=== PATIENT | male | born 1990 | race Caucasian/White ===

== ENCOUNTER 2017-02-04 15:51 | Emergency (ER) | payer OTHER ==
[~2017-02-04] VITALS: Ht 185.4 cm; Wt 142.9 kg
[~2017-02-04 15:51] MED LIST: ADDERALL XR 2020 MG PO; ALPRAZOLAM1 MG PO; ASCORBIC ACID500 MG PO; BACLOFEN10 MG PO; BACTRIM DS TAB1 EACH PO; CATAPRES0.1 MG PO; DAILY VITAMIN1 EAC2 PO; DEXAMETHASONE4 MG PO; DEXTROAMP-AMPHE10 MG PO; FERROUS SULFAT325 MG PO; GABAPENTIN300 MG PO; HYOSCYAMINE0.125 MG PO; IBUPROFEN600 MG PO; KEFLEX500 MG PO; KLONOPIN0.5 MG PO; LEVSIN0.125 MG PO; LYRICA100 MG PO; MELOXICAM7.5 MG PO; METHYLPHENIDATE54 MG PO; NEURONTIN300 MG PO; NORCO 10-325 T1 EACH PO; ONDANSETRON ODT4 MG PO; PHENTERMINE HCL30 MG PO; PRILOSEC40 MG PO; PROMETHAZINE HC25 M1 PO; PROZAC20 MG PO; SERTRALINE HCL50 MG PO; TOPAMAX25 MG PO; TRAMADOL HCL50 MG PO; XANAX1 MG PO; ZOFRAN4 MG PO
[2017-02-04] MEDS ORDERED: CLONAZEPAM0.5 MG PO (16:17)
[2017-02-04] MEDS ORDERED: CELECOXIB100 MG PO (16:18)
[2017-02-04] MEDS ORDERED: ROBAXIN-750750 MG PO (16:24)
[2017-02-04] MEDS ORDERED: METHYLPREDNISOLO4 M1 PO (16:24)
== END 2017-02-04 16:31 | disposition home or self-care (01) ==
LOC: ED 15:51
DX: M54.9 Dorsalgia, unspecified (principal); F32.9 Major depressive disorder, single episode, unspecified; K21.9 Gastro-esophageal reflux disease without esophagitis; F90.9 Attention-deficit hyperactivity disorder, unspecified type; F41.9 Anxiety disorder, unspecified; E66.9 Obesity, unspecified; Z79.899 Other long term (current) drug therapy; Z91.09 Other allergy status, other than to drugs and biological substances
CPT/HCPCS: 99283

== ENCOUNTER 2018-09-24 12:32 | Emergency (ER) | payer OTHER ==
[~2018-09-24] VITALS: Ht 185.4 cm; Wt 163.0 kg
--- OUTSIDE RECORDS SUMMARY | ~2018-09-24 | XMS | Clinical Summary ---
Demographics + + + | Address | [address] | | | [place] [address] | + + + | Home Phone | | + + + | Preferred Language | Unknown | + + + | Marital Status | Unknown | + + + | Nondenominational Affiliation | Unknown | + + + | Race | Unknown | + + + | Ethnic Group | Unknown | + + + Author + + + | Author | [facility] | + + + | Organization | [facility] | + + + | Address | Unknown | + + + | Phone | Unavailable | + + + Support + + +---------+ + | Name | Relationship | Address | Phone | + + +---------+ + | Contact,No | ECON | Unknown | | + + +---------+ + Care Team Providers + +------+ + | Care Welding Process Specialist Name | Role | Phone | + +------+ + | Maya Nicole MD | PP | Unavailable | + +------+ + Allergies Not on File Current Medications Not on file Active Problems Not on file Social History + +-------+ +--------+------+ | Tobacco Use | Types | Packs/Day | Years | Date | | | | | Used | | + +-------+ +--------+------+ | Never Assessed | | | | | + +-------+ +--------+------+ + + + | Sex Assigned at | Date Recorded | | | | + + + | Not on file | | + + + Plan of Treatment + + + + + | Health Maintenance | Due Date | Last Done | Comments | + + + + + | Vaccine: | | | | | Dtap/Tdap/Td (1 - | 8 | | | | Tdap) | | | | + + + + + | Vaccine: Influenza | | | | | (#1) | 8 | | | + + + + + Results Not on filefrom Last 3 Months Insurance + +--------+ +------+-------+ + | Payer | Benefi | Subscriber | Type | Phone | Address | | | t Plan | ID | | | | | | / | | | | | | | Group | | | | | + +--------+ +------+-------+ + | MEDICAID | [place] | [id number] | | | [address] | | | [place] | | | | [place] | | | [place] | | | | [phone] | | | VICE PRESIDENT CONSULTING SERVICES | | | | | + +--------+ +------+-------+ + + +--------+ +--------+ + + | Guarantor Name | Accoun | Relation to | Date | Phone | Billing Address | | | t Type | Patient | of | | | | | | | | | | + +--------+ +--------+ + + | GAL SAHA | Person | Self | [birth year] | Home: | [address] | | | al/[place] | | 1990 | [phone] | [place] | | | [place] | | | [phone] | [phone] | + +--------+ +--------+ + +"
--- OUTSIDE RECORDS SUMMARY | ~2018-09-24 | XMS | Clinical Summary ---
Demographics + + + | Address | [address] | | | [place] [address] | + + + | Home Phone | | + + + | Preferred Language | Unknown | + + + | Marital Status | Single | + + + | Judaism Affiliation | Unknown | + + + | Race | White | + + + | Ethnic Group | Not or | + + + Author + + + | Author | [facility] | + + + | Organization | [facility] | + + + | Address | Unknown | + + + | Phone | Unavailable | + + + Support + + +---------+ + | Name | Relationship | Address | Phone | + + +---------+ + | SEFERINO ROMERO & | ECON | Unknown | | | CORRINE | | | | + + +---------+ + Care Team Providers + +------+ + | Care Plant Pathologist Name | Role | Phone | + +------+ + PP | Unavailable | + +------+ + Source Comments CARLEEN is fully live on both [facility] Amb[facility] and [facility] InPatient.[facility] Allergies Not on File Current Medications Not [...] | + + + + + | Influenza (Flu) | | | | | vaccination (#1) | 8 | | | + + + + + Results Not on filefrom Last 3 Months"
--- OUTSIDE RECORDS SUMMARY | ~2018-09-24 | XMS | Clinical Summary ---
Demographics + + + | Address | [address] | | | [place] [address] | + + + | Home Phone | | + + + | Preferred Language | Unknown | + + + | Marital Status | Single | + + + | Restoration Affiliation | Unknown | + + + [...] Team Providers + +------+ + | Care Entry Level Assistant Manager Name | Role | Phone | + +------+ + PP | Unavailable | + +------+ + Source Comments CARLEEN is fully live on both [facility] Ambulatory and [facility] InPatient.[facility] Allergies Not on File Current Medications Not [...]
--- OUTSIDE RECORDS SUMMARY | ~2018-09-24 | XMS | Clinical Summary ---
Demographics + + + | Address | [address] | | | [place] [address] | + + + | Home Phone | | + + + | Preferred Language | Unknown | + + + | Marital Status | Unknown | + + + | Buddhist Affiliation | Unknown | + + + | Race | Unknown | + + + | Ethnic Group | Unknown | + + + Author + + + | Author | [facility] | + + + | Organization | [facility] | + + + | Address | Unknown | + + + | Phone | Unavailable | + + + Support + + +---------+ + | Name | Relationship | Address | Phone | + + +---------+ + | Contact,No | ECON | Unknown | | + + +---------+ + Care Team Providers + +------+ + | Care Machine Hamper Maker Name | Role | Phone | + [...] +------+-------+ + | MEDICAID | [place] | [id number] | | | [address] | | | N | | | | [place] | | | [place] | | | | [phone] | | | DEICER ELEMENT WINDER MACHINE | | | | | + +--------+ [...] | [place] | | | [phone] | [phone] | + +--------+ +--------+ + +"
--- OUTSIDE RECORDS SUMMARY | ~2018-09-24 | XMS | Clinical Summary ---
Demographics + + + | Address | [address] | | | [place] [address] | + + + | Home Phone | | + + + | Preferred Language | Unknown | + + + | Marital Status | | + + + | Scientologist Affiliation | Unknown | + + + | Race | Unknown | + + + | Ethnic Group | Unknown | + + + Author + + + | Author | [facility] | | | and [place] | + + + | Organization | [facility] | | | and [place] | + + + | Address | Unknown | + + + | Phone | Unavailable | + + + Support + + +---------+ + | Name | Relationship | Address | Phone | + + +---------+ + | Kt Saha | ECON | Unknown | | | A/Eliza L | | | | + + +---------+ + Care Team Providers + +------+ + | Care Boiler Attendant Name | Role | Phone | + +------+ + | Conrad Thomas PARCEL POST ORDER CLERK | PP | Unavailable | + +------+ + Allergies No Known Allergies Current Medications + + +---------+---------+------+------+-------+ | Prescription | Sig. | Disp. | Refills | Star | End | Statu | | | | | | t | Date | s | | | | | | Date | | | + + +---------+---------+------+------+-------+ | testosterone | Take one tablet | | | 11/3 | | Activ | | cypionate | orally daily | | | 0/20 | | e | | (DEPOTESTOTERONE | | | | 12 | | | | CYPIONATE) 100 MG/ML | | | | | | | | injection | | | | | | | + + +---------+---------+------+------+-------+ | Nutritional | ONE-A-DAY TEEN | | | 11/3 | | Activ | | Supplements | ADVANTAGE/HIM TABS; | | | 0/20 | | e | | (NUTRITIONAL | Take one tablet | | | 12 | | | | SUPPLEMENT PO) | orally daily | | | | | | + + +---------+---------+------+------+-------+ | FLUoxetine | Take 40 mg by mouth | | | | | Activ | | (PROZAC) 20 mg | 2 times daily. | | | | | e | | capsule | | | | | | | + + +---------+---------+------+------+-------+ | methylphenidate | Take 18 mg by mouth | | | | | Activ | | (CONCERTA) 18 mg ER | every morning. 3 | | | | | e | | tablet | tabs qd | | | | | | + + +---------+---------+------+------+-------+ | dicyclomine | Take 10 mg by mouth | | | | | Activ | | (BENTYL) 10 mg | 4 times daily | | | | | e | | capsule | (before meals and | | | | | | | | nightly). | | | | | | + + +---------+---------+------+------+-------+ | escitalopram | Take 20 mg by mouth | | | | | Activ | | (LEXAPRO) 20 mg | Daily. | | | | | e | | tablet | | | | | | | + + +---------+---------+------+------+-------+ | omeprazole | Take 40 mg by mouth | | | | | Activ | | (PRILOSEC) 20 mg | 2 times daily. 1 tab | | | | | e | | capsule | bid | | | | | | + + +---------+---------+------+------+-------+ | Multiple Vitamin | Take by mouth. | | | | | Activ | | (DAILY-VITAMIN) TABS | | | | | | e | + + +---------+---------+------+------+-------+ | testosterone | Inject into the | | | | | Activ | | cypionate | muscle every 14 | | | | | e | | (DEPOTESTOTERONE | days. | | | | | | | CYPIONATE) 100 MG/ML | | | | | | | | injection | | | | | | | + + +---------+---------+------+------+-------+ | gabapentin | Take 600 mg by mouth | | | | | Activ | | (NEURONTIN) 300 mg | 2 times daily. 1-2 | | | | | e | | capsule | qhs | | | | | | + + +---------+---------+------+------+-------+ | sertraline | Take 50 mg by mouth | | | | | Activ | | (ZOLOFT) 50 mg | Daily. | | | | | e | | tablet | | | | | | | + + +---------+---------+------+------+-------+ | ascorbic acid | Take 500 mg by mouth | | | | | Activ | | (VITAMIN C) 500 mg | Every other day. | | | | | e | | tablet | | | | | | | + + +---------+---------+------+------+-------+ | ferrous sulfate | Take 325 mg by mouth | | | | | Activ | | 325 mg tablet | Every other day. | | | | | e | + + +---------+---------+------+------+-------+ | | Take 20 mg by mouth | | | | | Activ | | amphetamine-dextroam | 2 times daily. | | | | | e | | phetamine (ADDERALL | | | | | | | | XR) 20 MG 24 hr | | | | | | | | capsule | | | | | | | + + +---------+---------+------+------+-------+ | QUEtiapine | Take 50 mg by mouth | | | | | Activ | | (SEROQUEL) 50 MG | nightly. | | | | | e | | tablet | | | | | | | + + +---------+---------+------+------+-------+ | pregabalin | Take 200 mg by mouth | | | | | Activ | | (LYRICA) 200 MG | 2 times daily. | | | | | e | | capsule | | | | | | | + + +---------+---------+------+------+-------+ | dicyclomine | Take 10 mg by mouth | | | 11/3 | | Activ | | (BENTYL) 10 mg | 3 times daily. | | | 0/20 | | e | | capsule | | | | 12 | | | + + +---------+---------+------+------+-------+ | Lisdexamfetamine | Take by mouth. | | | | | Activ | | Dimesylate (VYVANSE | | | | | | e | | PO) | | | | | | | + + +---------+---------+------+------+-------+ | Lurasidone HCl | Take by mouth. | | | | | Activ | | (LATUDA PO) | | | | | | e | + + +---------+---------+------+------+-------+ | CLONAZEPAM PO | Take by mouth. | | | | | Activ | | | | | | | | e | + + +---------+---------+------+------+-------+ | promethazine | Take 1 tablet by | 20 | 0 | 09/2 | | Activ | | (PHENERGAN) 25 mg | mouth every 6 hours | tablet | | 2/20 | | e | | tablet | as needed. | | | 14 | | | + + +---------+---------+------+------+-------+ | gabapentin | TAKE 2 CAPSULES 1/2 | 60 | 0 | 10/2 | | Activ | | (NEURONTIN) 300 mg | HOUR PRIOR TO | capsule | | 6/20 | | e | | capsuleIndications: | BEDTIME FOR | | | 14 | | | | Periodic limb | MANAGEMENT OF | | | | | | | movement disorder | PERIODIC LIMB | | | | | | | (PLMD) | MOVEMENT DISORDER | | | | | | + + +---------+---------+------+------+-------+ | cloNIDine | Place 1 patch onto | | | | | Activ | | (CATAPRES) 0.2 mg/24 | the skin Daily. | | | | | e | | hr | tablet | | | | | | + + +---------+---------+------+------+-------+ | baclofen | Take 10 mg by mouth | | | | | Activ | | (LIORESAL) 10 mg | as needed. | | | | | e | | tablet | | | | | | | + + +---------+---------+------+------+-------+ | ondansetron | Take 4 mg by mouth | | | | | Activ | | (ZOFRAN ODT) 4 mg | as needed for | | | | | e | | disintegrating | Nausea. | | | | | | | tablet | | | | | | | + + +---------+---------+------+------+-------+ | ibuprofen | Take 600 mg by mouth | | | | | Activ | | (ADVIL,MOTRIN) 600 | every 6 hours as | | | | | e | | MG tablet | needed for Pain. | | | | | | + + +---------+---------+------+------+-------+ | | Take 1-2 tablets by | 20 | 0 | 01/2 | | Activ | | HYDROcodone-acetamin | mouth every 6 hours | tablet | | 6/20 | | e | | ophen (NORCO) 5-325 | as needed for Pain. | | | 17 | | | | mg per tablet | | | | | | | + + +---------+---------+------+------+-------+ Active Problems + + + | Problem | Noted Date | + + + | Periodic limb movement disorder (PLMD) | 11/25/2012 | + + + + + | Last Assessment & Plan: Gal has newly diagnosed periodic | | limb movement disorder. He has initiated gabapentin therapy with | | significant benefit and no adverse effects.Management was | | discussed. He'll use gabapentin therapy as prescribed. | + + Resolved Problems + + + + | Problem | Noted | Resolved | | | Date | Date | + + + + | ARCADIO W/ HYPERSOMNIA | 06/16/20 | | | | 12 | 3 | + + + + Family History + + +------+ + | Medical History | Relation | Name | Comments | + + +------+ + | Depression | Other | | | + + +------+ + | Mental illness | Other | | | + + +------+ + | Colon cancer | Paternal | | | | | Grandmoth | | | | | er | | | + + +------+ + + +------+--------+ + | Relation | Name | Status | Comments | + +------+--------+ + | Other | | | | + +------+--------+ + | Paternal Grandmother | | | | + +------+--------+ + Social History + +-------+ +--------+------+ | Tobacco Use | Types | Packs/Day | Years | Date | | | | | Used | | + +-------+ +--------+------+ | Never Smoker | | | | | + +-------+ +--------+------+ + +---+---+---+ | Smokeless Tobacco: | | | | | Never Used | | | | + +---+---+---+ + + +---------+ + | Alcohol Use | Drinks/We | oz/Week | Comments | | | ek | | | + + +---------+ + | Yes | 0-0.5 | 0.0 | | | | Standard | | | | | drinks or | | | | | | | | | | equivalen | | | | | t | | | + + +---------+ + + + + | Sex Assigned at | Date Recorded | | | | + + + | Not on file | | + + + Last Filed Vital Signs + + + + | Vital Sign | Reading | Time Taken | + + + + | Blood Pressure | 127/69 | 07/25/20162044 PST | + + + + | Pulse | 86 | 07/25/20162044 PST | + + + + | Temperature | 37.1 C (98.8 F) | 07/25/20161903 PST | + + + + | Respiratory Rate | 17 | 07/25/20162044 PST | + + + + | Oxygen Saturation | 98% | 07/25/20162044 PST | + + + + | Inhaled Oxygen | - | - | | Concentration | | | + + + + | Weight | 183.8 kg (405 lb 3.2 | 07/25/20161905 PST | | | oz) | | + + + + | Height | 188 cm (6' 2") | 07/25/20161903 PST | + + + + | Body Mass Index | 52.02 | 07/25/20161905 PST | + + + + Plan of Treatment + [...] filefrom Last 3 Months Insurance + +--------+ +--------+ +---------+ | Payer | Benefi | Subscriber | Type | Phone | Address | | | t Plan | ID | | | | | | / | | | | | | | Group | | | | | + +--------+ +--------+ +---------+ | [employer] | MODA | [id number] | Medica | +- | | | MEDICAID HMO | HEALTH | | id | [id number] | | | | MDCD | | | | | | | [place] | | | | | + +--------+ +--------+ +---------+ + +--------+ +--------+ + + | Guarantor Name | Accoun | Relation to | Date | Phone | Billing Address | | | t Type | Patient | of | | | | | | | | | | + +--------+ +--------+ + + | GAL SAHA | Person | Self [birth year] | Home: | [address] | | [place] | [place] | | 1990 | [phone] | [place] | | | [place] | | | [phone] | [phone] | + +--------+ +--------+ + +
--- OUTSIDE RECORDS SUMMARY | ~2018-09-24 | XMS | Clinical Summary ---
Demographics + + + | Address | [address] | | | [place] [address] | + + + | Home Phone | | + + + | Preferred Language | Unknown | + + + | Marital Status | | + + + | Holiness Affiliation | Unknown | + + + | Race | Unknown | + + + | Ethnic Group | Unknown | + + + Author + + + | Author | [facility] | | | and [place] | + + + | Organization | [facility] | | | and [place] [...] Team Providers + +------+ + | Care Health Information Clerk Name | Role | Phone | + +------+ + | Conrad Thomas COMPUTATIONAL CHEMIST | PP | Unavailable | + +------+ [...] | [employer] | MODA | [id number] | [place] | +- | | | [...] | | | [place] | | | [phone] | [phone] | + +--------+ +--------+ + +
[~2018-09-24 12:32] MED LIST changes: +CELECOXIB100 MG PO; +CLONAZEPAM0.5 MG PO; +METHYLPREDNISOLO4 M1 PO; +ROBAXIN-750750 MG PO
--- OUTSIDE RECORDS SUMMARY | 2018-09-24 12:36 | XMS ---
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 E.DBen VISIT COUNT (12 MO.) 1 KEYONNA Acosta TOTAL 1 NOTE: Visits indicate total known visits. ED/UCC VISIT TRACKING (12 MO.) 09/24/2018 12:33 [facility]NA Mims [place] TYPE: Emergency COMPLAINT: - FALL/EXTREMITY PAIN INPATIENT VISIT TRACKING (12 MO.) No inpatient visits to display in this time frame [id number]
[2018-09-24] MEDS ORDERED: ZANAFLEX4 MG PO (12:55)
[2018-09-24] MEDS ORDERED: SUDOGEST120 MG PO (12:55)
[2018-09-24] MEDS ORDERED: CYMBALTA60 MG PO (12:56)
== END 2018-09-24 14:10 | disposition home or self-care (01) ==
LOC: ED 12:32
PROC: 2W3CX1Z Immobilization of Right Lower Arm using Splint (ICD-10-PCS; principal; 2018-09-24)
DX: S63.501A Unspecified sprain of right wrist, initial encounter (principal); F32.9 Major depressive disorder, single episode, unspecified; K21.9 Gastro-esophageal reflux disease without esophagitis; F90.9 Attention-deficit hyperactivity disorder, unspecified type; F41.9 Anxiety disorder, unspecified; E66.9 Obesity, unspecified; F84.0 Autistic disorder; Z90.49 Acquired absence of other specified parts of digestive tract; Z91.09 Other allergy status, other than to drugs and biological substances; Z79.899 Other long term (current) drug therapy; W01.0XXA Fall on same level from slipping, tripping and stumbling without subsequent striking against object, initial encounter; Y99.0 Civilian activity done for income or pay
CPT/HCPCS: 29125; 73110; 99283-25

== ENCOUNTER 2018-09-25 11:30 | Emergency (ER) | payer OTHER ==
[~2018-09-25] VITALS: Ht 185.4 cm; Wt 162.8 kg
--- OUTSIDE RECORDS SUMMARY | ~2018-09-25 | XMS | Clinical Summary ---
Demographics + + + | Address | [address] | | | [place] [address] | + + + | Home Phone | | + + + | Preferred Language | Unknown | + + + | Marital Status | Single | + + + | Faith Affiliation | Unknown | + + + [...] Team Providers + +------+ + | Care Manufacturing Job Titles Name | Role | Phone | + +------+ + PP | Unavailable | + +------+ + Source Comments CARLEEN is fully live on both [facility] and [facility] InPatient.[facility] Allergies Not on File Current Medications [...]
--- OUTSIDE RECORDS SUMMARY | ~2018-09-25 | XMS | Clinical Summary ---
Demographics + + + | Address | [address] | | | [place] [address] | + + + | Home Phone | | + + + | Preferred Language | Unknown | + + + | Marital Status | Single | + + + | Jewish Affiliation | Unknown | + + + [...] Team Providers + +------+ + | Care Bit Tripoler Name | Role | Phone | + +------+ + PP | Unavailable | + +------+ + Source Comments CARLEEN is fully live on both [facility] Ambulatory and [facility] InPatient.[facility] Allergies Not on File Current Medications [...]
--- OUTSIDE RECORDS SUMMARY | ~2018-09-25 | XMS | Clinical Summary ---
Demographics + + + | Address | [address] | | | [place] [address] | + + + | Home Phone | | + + + | Preferred Language | Unknown | + + + | Marital Status | Unknown | + + + | Anabaptism Affiliation | Unknown | + + + | Race | Unknown | + + + | Ethnic Group | Unknown | + + + Author + + + | Author | [facility] | + + + | Organization | [facility] | + + + | Address | Unknown | + + + | Phone | Unavailable | + + + Support + + +---------+ + | Name | Relationship | Address | Phone | + + +---------+ + | Contact,No | ECON | Unknown | | + + +---------+ + Care Team Providers + +------+ + | Care Surety Bond Agent Name | Role | Phone | + [...] +------+-------+ + | MEDICAID | [place] | [id number] | | | [address] | | | [place] | | | | [place] | | | [place] | | | | [phone] | | | LUMBER DRIVER | | | | | + +--------+ [...] | [place] | | | [phone] | [phone] | + +--------+ +--------+ + +"
--- OUTSIDE RECORDS SUMMARY | ~2018-09-25 | XMS | Clinical Summary ---
Demographics + + + | Address | [address] | | | [place] [address] | + + + | Home Phone | | + + + | Preferred Language | Unknown | + + + | Marital Status | Unknown | + + + | Bahai Affiliation | Unknown | + + + | Race | Unknown | + + + | Ethnic Group | Unknown | + + + Author + + + | Author | [facility] | + + + | Organization | [facility] | + + + | Address | Unknown | + + + | Phone | Unavailable | + + + Support + + +---------+ + | Name | Relationship | Address | Phone | + + +---------+ + | Contact,No | ECON | Unknown | | + + +---------+ + Care Team Providers + +------+ + | Care Envelope Maker Name | Role | Phone | [...] +------+-------+ + | MEDICAID | [place] | [id number] | | | [address] | | | [place] | | | | [place] | | | [place] | | | | [phone] | | | MANAGER CUSTOMER | | | | | + +--------+ [...] | [place] | | | [phone] | [phone] | + +--------+ +--------+ + +"
--- OUTSIDE RECORDS SUMMARY | ~2018-09-25 | XMS | Clinical Summary ---
Demographics + + + | Address | [address] | | | [place] [address] | + + + | Home Phone | | + + + | Preferred Language | Unknown | + + + | Marital Status | | + + + | Jehovah'S Witness Affiliation | Unknown | + + + | Race | Unknown | + + + | Ethnic Group | Unknown | + + + Author + + + | Author | [facility] | | | and [place] | + + + | Organization | [facility] | | | and [place] | [...] Team Providers + +------+ + | Care Vice President Business & Corporate Development Name | Role | Phone | + +------+ + | Conrad Thomas UI UX DEVELOPER | PP | Unavailable | + +------+ [...] | [employer] | [employer] | [id number] | [place] | +- | | | [...] | | | [place] | | | [phone] | [phone] | + +--------+ +--------+ + +
--- OUTSIDE RECORDS SUMMARY | ~2018-09-25 | XMS | Clinical Summary ---
Demographics + + + | Address | [address] | | | [place] [address] | + + + | Home Phone | | + + + | Preferred Language | Unknown | + + + | Marital Status | | + + + | Zoroastrianism Affiliation | Unknown | + + + | Race | Unknown | + + + | Ethnic Group | Unknown | + + + Author + + + | Author | [facility] | | | and [place] | + + + | Organization | [facility] | | | and [place] [...] Team Providers + +------+ + | Care Household Appliances Service Technician Name | Role | Phone | + +------+ + | Conrad Thomas BAR FINISH OPERATOR | PP | Unavailable | + +------+ [...] | [employer] | MODA | [id number] | [place] | +- | | | [...] | | | [place] | | | [phone] | [phone] | + +--------+ +--------+ + +
[~2018-09-25 11:30] MED LIST changes: +CYMBALTA60 MG PO; +SUDOGEST120 MG PO; +ZANAFLEX4 MG PO
--- OUTSIDE RECORDS SUMMARY | 2018-09-25 11:32 | XMS ---
PreManage Notification: BERLIN SAHA Security Endodontic Assistant Events No recent Security Events currently on file CRITERIA MET - [facility] - Has Care Guidelines - PDMP - [facility] - 2 Visits in 30 Days CARE PROVIDERS Asif Enciso [facility] 09/25/2018-Current PHONE: Unknown Juanita Yo Current PAC PHONE: Unknown BEBO COTTO Primary Care Current PHONE: Unknown DOCTOR SOMMER Primary Care Current PHONE: Unknown Guidelines Source: [facility] [place] Guidelines Date: 09/24/2018 Care Coordination: Currently receives services from [facility].\T\nbsp; Please contact [phone] with any mental health concerns.\T\nbsp; Care History Medical/Surgical 09/25/2018 [facility] - PATIENT HAS AN APT TO ESTABLISH CARE WITH DR ENCISO ON 10/28/18. - Patient is currently established with [facility]. If patient is seen in the ED during business hours. Please contact [facility] at [facility]. Care Recommendation: This patient has had 5 or more Emergency Department visits in the last 12 months.\T\nbsp; Patient requires education on the scope and purpose of the ED as an acute care provider not a Primary Care Provider and should not be utilized for chronic conditions.\T\nbsp; These are guidelines and the provider should exercise clinical judgment when providing care. E.D. VISIT COUNT (12 MO.) 2 [facility]. TOTAL 2 NOTE: Visits indicate total known visits. ED/C VISIT TRACKING (12 MO.) 09/25/2018 11:30 [facility] [place] TYPE: Emergency COMPLAINT: - RIGHT WRIST PAIN/INJURY 09/24/2018 12:33 [facility] [place] TYPE: Emergency COMPLAINT: - FALL/EXTREMITY PAIN INPATIENT VISIT TRACKING (12 MO.) No inpatient visits to display in this time frame [id number]
== END 2018-09-25 11:55 | disposition home or self-care (01) ==
LOC: ED 11:30
DX: S63.501D Unspecified sprain of right wrist, subsequent encounter (principal)

== ENCOUNTER 2019-01-02 11:59 | Emergency (ER) | payer OTHER ==
[~2019-01-02] VITALS: Ht 190.5 cm; Wt 163.3 kg
[~2019-01-02 11:59] MED LIST changes: +FOCALIN XR5 MG PO; +NORCO 5-325 TA1 EACH PO
--- OUTSIDE RECORDS SUMMARY | 2019-01-02 12:02 | XMS ---
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 CRITERIA MET - [facility] - Has Care Guidelines - PDMP - [facility] - 2 Visits in 30 Days CARE PROVIDERS Asif Enciso [facility] 09/25/2018-Current PHONE: Unknown Juanita Yo Treatment Current PAC PHONE: Unknown BEBO COTTO Primary Care Current PHONE: Unknown DOCTOR SOMMER Primary Care Current PHONE: Unknown Guidelines Source: [facility] [place] Guidelines Date: 09/24/2018 Care Coordination: Currently receives services from [facility].\T\nbsp; Please contact [phone] with any mental health concerns.\T\nbsp; Care History Medical/Surgical 12/04/2018 [facility] - PATIENT RECENTLY NO SHOWED TO AN APT WITH DR NOYOLA ON 11/25/18. - DR NOYOLA IS NO LONGER PRESCRIBING PATIENT TRAMADOL- REFERRING PATIENT TO IBUPROFEN AND OR TYLENOL FOR PAIN CONTROL. - NEXT APT WITH DR ENCISO ON 03/09/19. 09/25/2018 [facility] - PATIENT HAS AN APT TO ESTABLISH CARE WITH DR ENCISO ON 10/28/18. - Patient is currently established with [facility]. If patient is seen in the ED during business hours. Please contact CHWs at [facility]. Care Recommendation: This patient has had 5 [...] providing care. E.D. VISIT COUNT (12 MO.) 1 [facility] [employer] TOTAL 5 NOTE: Visits indicate total known visits. ED/UCC VISIT TRACKING (12 MO.) 01/02/2019 12:00 [facility] [place] TYPE: Emergency COMPLAINT: - LEFT EAR PAIN/NON INJURY, THROBBING 12/03/2018 14:31 [facility] [place] TYPE: Emergency COMPLAINT: - BACK PAIN DIAGNOSES: - Obesity, unspecified - Juvenile osteochondrosis of spine, thoracic region - Autistic disorder - Other allergy status, other than to drugs and biological substances - Dorsalgia, unspecified - Collapsed vertebra, not elsewhere classified, thoracic region, initial encounter for fracture - Acquired absence of other specified parts of digestive tract - Major depressive disorder, single episode, unspecified - Gastro-esophageal reflux disease without esophagitis - 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 - Anxiety disorder, unspecified 12/02/2018 00:51 [facility] [place] TYPE: Emergency DIAGNOSES: - Pain in thoracic spine - Wedge compression fracture of unspecified thoracic vertebra, initial encounter for closed fracture - MID BACK PAIN 09/25/2018 11:30 [facility] [place] TYPE: Emergency COMPLAINT: - RIGHT WRIST PAIN/INJURY DIAGNOSES: - Unspecified sprain of right wrist, subsequent encounter 09/24/2018 12:33 [facility] [place] TYPE: Emergency COMPLAINT: - FALL/EXTREMITY PAIN DIAGNOSES: - Major depressive disorder, single episode, unspecified - Obesity, unspecified - Autistic disorder - Pain in right wrist - Anxiety disorder, unspecified - Other half-way (current) drug therapy - Gastro-esophageal reflux disease without esophagitis - Acquired absence of other specified parts of digestive tract - Other allergy status, other than to drugs and biological substances - Attention-deficit hyperactivity disorder, unspecified type - Unspecified sprain of right wrist, initial encounter - Fall on same level from slipping, tripping and stumbling without subsequent striking against object, initial encounter - Civilian activity done for income or pay INPATIENT VISIT TRACKING (12 MO.) No inpatient visits to display in this time frame [id number]
== END 2019-01-02 12:20 | disposition home or self-care (01) ==
LOC: ED 11:59
DX: H92.02 Otalgia, left ear (principal)

== ENCOUNTER 2020-12-29 08:08 | Emergency (ER) | payer OTHER ==
[~2020-12-29] VITALS: Ht 190.5 cm; Wt 163.3 kg
== END 2020-12-29 10:06 | disposition home or self-care (01) ==
LOC: ED 08:08
DX: S46.911A Strain of unspecified muscle, fascia and tendon at shoulder and upper arm level, right arm, initial encounter (principal); S53.401A Unspecified sprain of right elbow, initial encounter; S80.211A Abrasion, right knee, initial encounter; Z23 Encounter for immunization; W01.198A Fall on same level from slipping, tripping and stumbling with subsequent striking against other object, initial encounter; K21.9 Gastro-esophageal reflux disease without esophagitis; E66.9 Obesity, unspecified; Z91.040 Latex allergy status; Z79.899 Other long term (current) drug therapy
CPT/HCPCS: 73030; 73080; 73560; 90471; 90715; 99283-25

== ENCOUNTER 2021-03-28 09:59 | Emergency (ER) | payer OTHER ==
[~2021-03-28] VITALS: Ht 195.6 cm; Wt 154.2 kg
--- OUTSIDE RECORDS SUMMARY | 2021-03-28 10:02 | XMS ---
PreManage Notification: BERLIN SAHA Security Private Banker Events No recent Security Events currently on file CRITERIA MET - PDMP [facility]Current PHONE: [phone] Care Guidelines exist for the following facilities: [facility] ( 08/14/2020 ) Care History Medical/Surgical 01/04/2019 [facility] - [facility] HAS CALLED PATIENT- 3X UNABLE TO CONTACT PATIENT- VOICEMAIL BOX IS FULL. - PATIENT CAN ESTABLISH CARE WITH DR ANGELES OFFICE AND OR DR GUTIERREZ OFFICE, THEY ARE ACCEPTING NEW PATIENTS AT THIS TIME. 12/04/2018 [facility] - PATIENT RECENTLY NO SHOWED TO AN APT WITH DR NOYOLA ON 11/25/18. - DR NOYOLA IS NO LONGER PRESCRIBING PATIENT TRAMADOL- REFERRING PATIENT TO IBUPROFEN AND OR TYLENOL FOR PAIN CONTROL. - NEXT APT WITH DR ENCISO ON 03/09/19. 09/25/2018 [facility] - PATIENT HAS AN APT TO ESTABLISH CARE WITH DR ENCISO ON 10/28/18. - Patient is currently established with [facility]. If patient is seen in the ED during business hours. Please contact CHWs at [facility]. Care Recommendation: This patient has had 5 [...] care. E.D. VISIT COUNT (12 MO.) 2 [facility]osta TOTAL 2 NOTE: Visits indicate total known visits. ED/UCC VISIT TRACKING (12 MO.) 03/28/2021 10:00 [facility] [place] TYPE: Emergency COMPLAINT: - L SIDE DENTAL PROBLEM 12/29/2020 08:[address] [facility] [place] TYPE: Emergency COMPLAINT: - FALL, MULTIPLE COMPLAIN DIAGNOSES: - Gastro-esophageal reflux disease without esophagitis - Pain in right knee - Encounter for immunization - Strain of unspecified muscle, fascia and tendon at shoulder and upper arm level, right arm, initial encounter - Abrasion, right knee, initial encounter - Other retirement (current) drug therapy - Latex allergy status - Obesity, unspecified - Unspecified sprain of right elbow, initial encounter - Fall on same level from slipping, tripping and stumbling with subsequent striking against other object, initial encounter INPATIENT VISIT TRACKING (12 MO.) No inpatient visits to display in this time frame [id number]
[2021-03-28] MEDS ORDERED: HYDROCODON-ACE1 EA11 PO (10:17)
[2021-03-28] MEDS ORDERED: ALPRAZOLAM0.5 MG PO (10:18)
[2021-03-28] MEDS ORDERED: PENICILLIN V P500 MG PO (10:39)
[2021-03-28] MEDS ORDERED: FLAGYL500 MG PO (10:39)
== END 2021-03-28 11:00 | disposition home or self-care (01) ==
LOC: ED 09:59
PROC: 0C9WXZ0 Drainage of Upper Tooth, External Approach, Single (ICD-10-PCS; principal; 2021-03-28)
DX: K02.9 Dental caries, unspecified (principal); K04.7 Periapical abscess without sinus; K21.9 Gastro-esophageal reflux disease without esophagitis; E66.9 Obesity, unspecified; F84.0 Autistic disorder; Z91.048 Other nonmedicinal substance allergy status; Z79.899 Other long term (current) drug therapy
CPT/HCPCS: 41800; 99282-25

== ENCOUNTER 2021-04-08 01:42 | Emergency (ER) | payer OTHER ==
[~2021-04-08] VITALS: Ht 195.6 cm; Wt 158.0 kg
[~2021-04-08 01:42] MED LIST changes: +ALPRAZOLAM0.5 MG PO; +FLAGYL500 MG PO; +HYDROCODON-ACE1 EA11 PO; +PENICILLIN V P500 MG PO
--- OUTSIDE RECORDS SUMMARY | 2021-04-08 01:44 | XMS ---
PreManage Notification: BERLIN SAHA Security Senior Principal Process Engineer Events No recent Security Events currently on file CRITERIA MET - [facility] - 2 Visits in 30 Days - [facility] CARE PROVIDERS JUMA BONILLA [facility] 03/29/2021-Current PHONE: [phone] Asif Crawford [facility] 09/25/2018-Current PHONE: [phone] Care Guidelines exist for the following facilities: [facility] ( 08/14/2020 ) Care History Medical/Surgical 01/04/2019 [facility] - [facility] HAS CALLED PATIENT- 3X UNABLE TO CONTACT PATIENT- VOICEMAIL BOX IS FULL. - PATIENT CAN ESTABLISH CARE WITH DR ANGELES OFFICE AND OR DR GUTIERREZ OFFICE, THEY ARE ACCEPTING NEW PATIENTS AT THIS TIME. 12/04/2018 [facility] - PATIENT RECENTLY NO SHOWED TO AN APT WITH DR NOYOLA ON 11/25/18. - DR NOYOLA IS NO LONGER PRESCRIBING PATIENT TRAMADOL- REFERRING PATIENT TO IBUPROFEN AND OR TYLENOL FOR PAIN CONTROL. - NEXT APT WITH DR CRAWFORD ON 03/09/19. 09/25/2018 [facility] - PATIENT HAS AN APT TO ESTABLISH CARE WITH DR CRAWFORD ON 10/28/18. - Patient is currently established with [facility]. If patient is seen in the ED during business hours. Please contact CHWs at [facility]. Care Recommendation: This patient has had 5 [...] providing care. E.D. VISIT COUNT (12 MO.) 3 [facility]. TOTAL 3 NOTE: Visits indicate total known visits. ED/UCC VISIT TRACKING (12 MO.) 04/08/2021 01:42 [facility] [place] TYPE: Emergency COMPLAINT: - DENTAL PAIN 03/28/2021 10:00 [facility] [place] TYPE: Emergency COMPLAINT: - L SIDE DENTAL PROBLEM 12/29/2020 08:10 [facility] [place] TYPE: Emergency COMPLAINT: - FALL, MULTIPLE COMPLAIN DIAGNOSES: - Gastro-esophageal reflux disease without esophagitis - Pain in right knee - Encounter for immunization - Strain of unspecified muscle, fascia and tendon at shoulder and upper arm level, right arm, initial encounter - Abrasion, right knee, initial encounter - Other jail (current) drug therapy - Latex allergy status - Obesity, unspecified - Unspecified sprain of right elbow, initial encounter - Fall on same level from slipping, tripping and stumbling with subsequent striking against other object, initial encounter INPATIENT VISIT TRACKING (12 MO.) No inpatient visits to display in this time frame [email or web address]
[2021-04-08] MEDS ORDERED: CLINDAMYCIN HC300 MG PO (02:05)
== END 2021-04-08 02:29 | disposition home or self-care (01) ==
LOC: ED 01:42
DX: K04.7 Periapical abscess without sinus (principal); K21.9 Gastro-esophageal reflux disease without esophagitis; E66.9 Obesity, unspecified; F84.0 Autistic disorder; Z91.048 Other nonmedicinal substance allergy status; Z79.899 Other long term (current) drug therapy
CPT/HCPCS: 99282

== ENCOUNTER 2021-05-09 17:40 | Emergency (ER) | payer OTHER ==
[~2021-05-09] VITALS: Ht 195.6 cm; Wt 157.8 kg
[~2021-05-09 17:40] MED LIST changes: +CLINDAMYCIN HC300 MG PO
[2021-05-09] MEDS ORDERED: GABAPENTIN400 MG PO (17:54)
[2021-05-09] MEDS ORDERED: CONCERTA54 MG PO (17:54)
[2021-05-09] MEDS ORDERED: VITAMIN D21250 MCG PO (17:55)
--- OUTSIDE RECORDS SUMMARY | 2021-05-09 18:55 | XMS ---
PreManage Notification: BERLIN SAHA Security High [employer] Library Media Specialist Events No recent Security Events currently on file CRITERIA MET - [facility] CARE PROVIDERS JUMA BONILLA [facility] 03/29/2021-Current PHONE: [phone] Asif Crawford [facility] 09/25/2018-Current PHONE: [phone] Care Guidelines exist for the following facilities: [facility] ( 08/14/2020 ) Care History Medical/Surgical 01/04/2019 [facility] - [facility] HAS CALLED PATIENT- 3X UNABLE TO CONTACT PATIENT- VOICEMAIL BOX IS FULL. - PATIENT CAN ESTABLISH CARE WITH DR ANGELES OFFICE AND OR DR GUTIERREZ OFFICE, THEY ARE ACCEPTING NEW PATIENTS AT THIS TIME. 12/04/2018 [facility] - PATIENT RECENTLY NO SHOWED TO AN APT WITH DR NOYOLA ON 11/25/18. - DR NOYOLA IS NO LONGER PRESCRIBING PATIENT TRAMADOL- REFERRING PATIENT TO IBUPROFEN AND OR TYLENOL FOR PAIN CONTROL. - NEXT APT WITH DR CRAWFORD ON 03/09/19. 09/25/2018 [facility] - PATIENT HAS AN APT TO ESTABLISH CARE WITH DR CRAWFORD ON 10/28/18. - Patient is currently established with [facility]. If patient is seen in the ED during business hours. Please contact CHWs at [facility]. Care Recommendation: This patient has had [...] providing care. E.D. VISIT COUNT (12 MO.) 4 [facility] TOTAL 4 NOTE: Visits indicate total known visits. ED/UCC VISIT TRACKING (12 MO.) 05/09/2021 17:41 [facility] [place] TYPE: Emergency COMPLAINT: - BACK PAIN 04/08/2021 01:42 [facility] [place] TYPE: Emergency COMPLAINT: - DENTAL PAIN DIAGNOSES: - Autistic disorder - Other nonmedicinal substance allergy status - Other roasterman (current) drug therapy - Obesity, unspecified - Gastro-esophageal reflux disease without esophagitis - Periapical abscess without sinus 03/28/2021 10:00 [facility] [place] TYPE: Emergency COMPLAINT: - L SIDE DENTAL PROBLEM DIAGNOSES: - Other custodial (current) drug therapy - Other nonmedicinal substance allergy status - Gastro-esophageal reflux disease without esophagitis - Autistic disorder - Dental caries, unspecified - Obesity, unspecified - Periapical abscess without sinus - Other specified disorders of teeth and supporting structures 12/29/2020 08:[address] [facility] [place] TYPE: Emergency COMPLAINT: - FALL, MULTIPLE COMPLAIN DIAGNOSES: - Gastro-esophageal reflux disease without esophagitis - Pain in right knee - Encounter for immunization - Strain of unspecified muscle, fascia and tendon at shoulder and upper arm level, right arm, initial encounter - Abrasion, right knee, initial encounter - Other roasterman (current) drug therapy - Latex allergy status - Obesity, unspecified - Unspecified sprain of right elbow, initial encounter - Fall on same level from slipping, tripping and stumbling with subsequent striking against other object, initial encounter INPATIENT VISIT TRACKING (12 MO.) No inpatient visits to display in this time frame [email or web address]
[2021-05-09] MEDS ORDERED: CYCLOBENZAPRINE10 MG PO (19:39)
== END 2021-05-09 19:54 | disposition home or self-care (01) ==
LOC: ED 17:40
DX: M54.50 Low back pain, unspecified (principal); G89.29 Other chronic pain; E66.9 Obesity, unspecified; F84.0 Autistic disorder; Z91.048 Other nonmedicinal substance allergy status; Z79.899 Other long term (current) drug therapy
CPT/HCPCS: 99283

== ENCOUNTER 2022-05-05 10:01 | Emergency (ER) | payer OTHER ==
[~2022-05-05] VITALS: Ht 195.6 cm; Wt 165.2 kg
[~2022-05-05 10:01] MED LIST changes: +CONCERTA54 MG PO; +CYCLOBENZAPRINE10 MG PO; +GABAPENTIN400 MG PO; +VITAMIN D21250 MCG PO
--- OUTSIDE RECORDS SUMMARY | 2022-05-05 10:04 | XMS ---
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 - PATIENT CAN ESTABLISH CARE WITH DR ANGELES OFFICE AND OR DR GUTIERREZ OFFICE, THEY ARE ACCEPTING NEW PATIENTS AT THIS TIME. 12/04/2018 [facility] - PATIENT RECENTLY NO SHOWED TO AN APT WITH DR NOYOLA ON 11/25/18. - DR NOYOLA IS NO LONGER PRESCRIBING PATIENT TRAMADOL- REFERRING PATIENT TO IBUPROFEN AND OR TYLENOL FOR PAIN CONTROL. - NEXT APT WITH DR CRAWFORD ON 03/09/19. 09/25/2018 [facility] - PATIENT HAS AN APT TO ESTABLISH CARE WITH DR CRAWFORD ON 10/28/18. - Patient is currently established with [facility]. If patient is seen in the ED during business hours. Please contact CHWs at [facility]. Care Recommendation: This patient has had [...] care. E.D. VISIT COUNT (12 MO.) 2 [facility] TOTAL 2 NOTE: Visits indicate total known visits. ED/UCC VISIT TRACKING (12 MO.) 05/05/2022 10:02 [facility] [place] TYPE: Emergency COMPLAINT: - SKIN RASH 05/09/2021 17:41 [facility] [place] TYPE: Emergency COMPLAINT: - BACK PAIN/INJ DIAGNOSES: - LOW BACK PAIN, UNSPECIFIED - Other nonmedicinal substance allergy status - Obesity, unspecified - Autistic disorder - Other supervisor intermediates (current) drug therapy - Other chronic pain INPATIENT VISIT TRACKING (12 MO.) No inpatient visits to display in this time frame [email or web address]
[2022-05-05] MEDS ORDERED: DULOXETINE HCL30 MG PO (10:22)
[2022-05-05] MEDS ORDERED: METHYLPHENIDATE18 MG PO (10:23)
[2022-05-05] MEDS ORDERED: CYPROHEPTADINE H4 MG PO (10:25)
[2022-05-05] MEDS ORDERED: CEPHALEXIN500 M1 PO (10:41)
== END 2022-05-05 11:03 | disposition home or self-care (01) ==
LOC: ED 10:01
DX: L03.115 Cellulitis of right lower limb (principal); K21.9 Gastro-esophageal reflux disease without esophagitis; E66.9 Obesity, unspecified; Z91.048 Other nonmedicinal substance allergy status
CPT/HCPCS: 99283

== ENCOUNTER 2022-06-25 18:52 | Emergency (ER) | payer OTHER ==
[~2022-06-25] VITALS: Ht 195.6 cm; Wt 172.0 kg
[~2022-06-25 18:52] MED LIST changes: +CEPHALEXIN500 M1 PO; +CYPROHEPTADINE H4 MG PO; +DULOXETINE HCL30 MG PO; +METHYLPHENIDATE18 MG PO
--- OUTSIDE RECORDS SUMMARY | 2022-06-25 18:55 | XMS ---
PreManage Notification: BERLIN SAHA Security Clinical Nurse Reviewer Events No recent Security Events currently on file CRITERIA MET - [facility] - 2 Visits in 30 Days - [facility] CARE PROVIDERS JUMA BONILLA [facility] 03/29/2021-Current PHONE: [phone] Asif Crawford [facility] 09/25/2018-Current PHONE: [phone] Care Guidelines exist for the following facilities: [facility] ( 08/14/2020 ) Care History Medical/Surgical 01/04/[address] [facility] - [facility] HAS CALLED PATIENT- 3X UNABLE TO CONTACT PATIENT- VOICEMAIL BOX IS FULL. - PATIENT CAN ESTABLISH CARE WITH DR ANGELES OFFICE AND OR DR GUTIERREZ OFFICE, THEY ARE ACCEPTING NEW PATIENTS AT THIS TIME. 12/04/[address] [facility] - PATIENT RECENTLY NO SHOWED TO AN APT WITH DR NOYOLA ON 11/25/18. - DR NOYOLA IS NO LONGER PRESCRIBING PATIENT TRAMADOL- REFERRING PATIENT TO IBUPROFEN AND OR TYLENOL FOR PAIN CONTROL. - NEXT APT WITH DR CRAWFORD ON 03/09/19. 09/25/[address] [facility] - PATIENT HAS AN APT TO ESTABLISH CARE WITH DR CRAWFORD ON 10/28/18. - Patient is currently established with [facility]. If patient is seen in the ED during business hours. Please contact CHWs at [facility]. Care Recommendation: This patient has had [...] E.D. VISIT COUNT (12 MO.) 3 [facility]. TOTAL 3 NOTE: Visits indicate total known visits. ED/UCC VISIT TRACKING (12 MO.) 06/25/2022 18:53 [facility] [place] TYPE: Emergency COMPLAINT: - LEG PAIN/SWELLING 06/25/2022 12:27 [facility] [place] TYPE: Emergency COMPLAINT: - R FOOT SWELLING 05/05/2022 10:02 [facility] [place] TYPE: Emergency COMPLAINT: - SKIN RASH DIAGNOSES: - Obesity, unspecified - Gastro-esophageal reflux disease without esophagitis - Rash and other nonspecific skin eruption - Cellulitis of right lower limb - Other nonmedicinal substance allergy status INPATIENT VISIT TRACKING (12 MO.) No inpatient visits to display in this time frame [email or web address]
[2022-06-25] MEDS ORDERED: DOXYCYCLINE HY100 MG PO (21:55)
== END 2022-06-25 22:12 | disposition home or self-care (01) ==
LOC: ED 18:52
DX: L03.115 Cellulitis of right lower limb (principal); R00.0 Tachycardia, unspecified; K21.9 Gastro-esophageal reflux disease without esophagitis; E66.9 Obesity, unspecified; Z91.048 Other nonmedicinal substance allergy status; Z79.899 Other long term (current) drug therapy; Z68.41 Body mass index [BMI] 40.0-44.9, adult
CPT/HCPCS: 36415; 80053; 85025; 85379; 99283; A9270

== ENCOUNTER 2024-07-20 10:51 | Emergency (ER) | payer BC ==
[~2024-07-20] VITALS: Ht 195.6 cm; Wt 192.8 kg
[~2024-07-20 10:51] MED LIST changes: +DOXYCYCLINE HY100 MG PO
[2024-07-20] MEDS ORDERED: ONDANSETRON 4 MG TAB ODT SL ONE (11:30)
[2024-07-20] MEDS ORDERED: BUTALB/ACETAMINOPHEN/CAFFEINE 1 EACH CAP PO ONE (11:30)
[2024-07-20] MEDS ORDERED: LORazepam 1 MG TAB PO ONE (11:30)
[2024-07-20] MEDS ORDERED: ATIVAN1 MG PO (12:50)
[2024-07-20] MEDS ORDERED: ONDANSETRON ODT4 MG PO (12:50)
[2024-07-20] MEDS ORDERED: ACETAMINOPHN-B1 EACH PO (12:50)
[2024-07-20 13:01] VITALS: BP 129/76
== END 2024-07-20 13:01 | disposition home or self-care (01) ==
LOC: ED 10:51
DX: G43.909 Migraine, unspecified, not intractable, without status migrainosus (principal); F84.0 Autistic disorder; K21.9 Gastro-esophageal reflux disease without esophagitis; E66.9 Obesity, unspecified; Z98.890 Other specified postprocedural states; Z91.048 Other nonmedicinal substance allergy status; Z79.899 Other long term (current) drug therapy
CPT/HCPCS: 70450; 99284-25; A9270; A9270-GY

== ENCOUNTER 2025-01-15 12:44 | Emergency (ER) | payer OTHER ==
[~2025-01-15] VITALS: Ht 195.6 cm; Wt 184.3 kg
[~2025-01-15 12:44] MED LIST changes: +ACETAMINOPHN-B1 EACH PO; +ATIVAN1 MG PO
[2025-01-15 13:33] LABS: BASOPHILS 0.3 % (0.2-1.2); EOSINOPHILS 1.7 % (0.8-7.0); LYMPHOCYTES 19.0 % (21.8-53.1); MCH 32.4 PG (25.7-32.2); MCHC 33.6 g/dL (32.3-36.5); MCV 96.4 fL (79.0-92.2); MONOCYTES 8.9 % (5.3-12.2); NEUTROPHILS 69.8 % (34.0-67.9); RBC 4.72 M/uL (4.63-6.08)
[2025-01-15 14:01] LABS: ALT (SGPT) 39.0 U/L (14-59); AST (SGOT) 20.0 U/L (15-37); GLOMERULAR FILTRATION RATE,EST 119.0 mL/min (>60); PROTEIN, TOTAL 7.1 g/dL (6.4-8.2); TSH, 3RD GENERATION 1.032 uIU/mL (0.358-3.740); UREA NITROGEN 5.0 mg/dL (7-18)
[2025-01-15 15:15] VITALS: BP 129/82
== END 2025-01-15 15:18 | disposition home or self-care (01) ==
LOC: ED 12:44
PROVIDERS: Emergency Medicine
DX: G89.18 Other acute postprocedural pain (principal); K21.9 Gastro-esophageal reflux disease without esophagitis; Z91.048 Other nonmedicinal substance allergy status
CPT/HCPCS: 36415; 70491; 80053; 84443; 85025; 99284-25; Q9967

== ENCOUNTER 2025-03-14 05:50 | Day surgery (SDC) | payer OTHER ==
[~2025-03-14] VITALS: Ht 188 cm; Wt 185.0 kg
[~2025-03-14 05:50] MED LIST changes: +BUTALB-ACETAMI1 EACH PO; +DULOXETINE HCL60 MG PO; +HYDROCODON-ACE1 EAC8 PO; +LACTATED RINGER'S 1,000 ML IV SCH; +LORAZEPAM1 MG PO; +NEURONTIN400 MG PO; +NEURONTIN800 MG PO; +ONDANSETRON ODT8 MG PO; +SUMATRIPTAN SU100 MG PO; +VENTOLIN HFA18 GM INH
[2025-03-14 06:03] VITALS: BP 137/76
[2025-03-14] MEDS ORDERED: LIDOCAINE HCL 2% 5 ML SDV ONE (06:56)
[2025-03-14] MEDS ORDERED: LIDOCAINE HCL 1% 5 ML SDV INJ ONE (07:00)
[2025-03-14] MEDS ORDERED: IBLOOD GLUCOSE TEST STRIP 1 EA TEST VI PRN (07:00)
--- NOTE | 2025-03-14 07:37 | EKG ---
[facility] [address] [place] [address] [place], [place] [address] Signed Normal sinus rhythm Left axis deviation Abnormal ECG No previous ECGs available Confirmed by IGNACIO NOYOLA MD ([id number]) on 03/14/2025 7:37:18 AM Electronically Signed By: IGNACIO NOYOLA 03/14/25 0737 PATIENT NAME: BERLIN SAHA Electrocardiogram DATE OF : 86 PHYSICIAN: IGNACIO NOYOLA REPORT #: [id number] REPORT IS CONFIDENTIAL AND NOT TO BE RELEASED WITHOUT AUTHORIZATION
--- NOTE | 2025-03-14 08:42 | NUR ---
03/14/25 0842 Majo Sykes 0838: PT ARRIVES TO PACU ASLEEP. REPORT RECEIVED FROM CAN CLOSING MACHINE TENDER AND JOURNEYMAN MEAT CUTTER. CLAYTON 0840: PT WAKES UP AND STARTS MOVING AROUND, TRYING TO SIT UP. HE IS EDUCATED THAT HE IS ALL DONE WITH HIS PROCEDURE.
[2025-03-14 09:01] VITALS: BP 118/78
--- NOTE | 2025-03-15 11:41 | OR ---
[facility] [address], [place] [address] Signed DATE OF OPERATION: 03/14/2025 SURGEON: Ihsan Conner MD PREOPERATIVE DIAGNOSIS: History of 11 polyps, 2013. POSTOPERATIVE DIAGNOSIS: Multiple polyps (eight). PROCEDURES: Total colonoscopy to cecum with cold snare polypectomy x2, cold morcellation polypectomy x6 and biopsy of rectal mucosa. INDICATION: This 34-year-old morbidly obese white man is a patient of Dr. Pires. 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 He has been evaluated for a 5.2 cm right thyroid cystic mass in the midportion considered BI-RADS category 2. He has other smaller thyroid lesions as well. Additionally noticed that in 2013, he underwent colonoscopy by Dr. Asif Casey, in which 11 polyps were resected. He has had more than one colonoscopy showing multiple polyps on every occasion he says. He was recently advised that he would probably not need colonoscopy until age 43, which is 10 more years. I offered that a colonoscopy be undertaken despite those other recommendations given the numerous polyps that he had and mindful that polyps are asymptomatic generally speaking. On that basis, he is here for colonoscopy. The risk of bleeding, infection, and perforation related to colonoscopy were reviewed with him. He understands and wished to proceed. FINDINGS: The prep was quite good complete. Colonoscopy was undertaken to the cecum with full intubation of the cecum. He had eight polyps in total, two of which were somewhat larger and quite clearly adenomatous, one in the left and the other in the cecum. All polyps were resected fully. Location included two in the cecum, four in the left colon, one in the sigmoid and one in the rectum. There was mild inflammation of the rectum, which was additionally biopsied to rule out underlying colitis. DESCRIPTION OF PROCEDURE: The patient was brought to the endoscopy suite and placed in lateral decubitus position, given intravenous sedation with propofol infusional technique. Digital rectal Electronically Signed By: IHSAN CONNER MD 03/15/25 1141 PATIENT NAME: BERLIN SAHA OPERATIVE REPORT DATE OF : 86 REPORT #: [id number] PHYSICIAN: IHSAN CONNER MD PCP: MEENA PIRES MD REPORT IS CONFIDENTIAL AND NOT TO BE RELEASED WITHOUT AUTHORIZATION [facility] [address], [place] [address] Signed examination was normal. An Olympus video colonoscope was passed in the rectum and manipulated throughout the colon ultimately intubating the cecum itself. The prep was notably quite good. The ileocecal valve and appendiceal orifice were normal. There was a small sessile polyp of the cecum, which was excised with cold snare technique. Specimen passed for pathology. Another small polyp was excised with cold morcellation technique also in the cecum. Withdrawal of scope showed no other polyp until the proximal ascending colon where a small polyp was noted, excised with cold morcellation technique. Another was larger at least 1 cm, excised with cold snare technique. Another in the mid colon and another also excised with cold morcellation technique and one in the sigmoid, similarly excised and one in the rectum excised similarly. There was mild inflammation of rectum and therefore biopsy of mucosa to assess for colitis was undertaken. The scope was straightened, withdrawn, and removed. The patient was taken to the recovery room in good condition. CONCLUDING DIAGNOSIS: Multiple polyps. PLAN: Recommend repeat colonoscopy in three years or less, sooner if symptoms should develop. He is to follow up with me regarding his thyroid anticipating partial right thyroid lobectomy on the basis of a very large and complex cystic lesion on the right side. MD MORELIA Spann/RAYNEL /[id number] cc: Meena Pires MD Copies: MEENA PIRES MD ~ Electronically Signed By: IHSAN CONNER MD 03/15/25 1141 PATIENT NAME: BERLIN ASHA OPERATIVE REPORT DATE OF : [birth year] REPORT #: [id number] PHYSICIAN: IHSAN CONNER MD PCP: MEENA PIRES MD REPORT IS CONFIDENTIAL AND NOT TO BE RELEASED WITHOUT AUTHORIZATION
--- NOTE | 2025-03-16 10:28 | PATH ---
[facility] [address] [facility] [place], [place] [address] Signed SPECIMEN(S): A CECUM POLYP SPECIMEN(S): B CECUM POLYP SPECIMEN(S): C DESCENDING POLYP SPECIMEN(S): D DESCENDING POLYP SPECIMEN(S): E DESCENDING POLYP SPECIMEN(S): F SIGMOID POLYP SPECIMEN(S): G DESCENDING POLYP SPECIMEN(S): H RECTAL POLYP SPECIMEN(S): I RECTUM BIOPSY SPECIMEN SOURCE: A. CECUM POLYP B. CECUM POLYP C. DESCENDING POLYP D. DESCENDING POLYP E. DESCENDING POLYP F. SIGMOID POLYP G. DESCENDING POLYP H. RECTAL POLYP I. RECTUM BIOPSY CLINICAL HISTORY: History of colon polyps and family history of polyps. Postop: Multiple polyps, mild proctitis. FINAL PATHOLOGIC DIAGNOSIS: A. Cecum, polypectomy: - Tubular adenoma. - Negative for high grade dysplasia or malignancy. B. Distal cecal polyp, biopsy: - Tubular adenoma and prominent intramucosal lymphoid aggregate. - Negative for high grade dysplasia or malignancy. C. Descending colon, polypectomy: - Prominent intramucosal lymphoid aggregates. D. Descending colon, polypectomy: - Hyperplastic polyp. E. Descending colon, polypectomy: - Tubular adenoma and prominent intramucosal lymphoid aggregate. - Negative for high grade dysplasia or malignancy. F. Sigmoid colon, polypectomy: - Prominent intramucosal lymphoid aggregate with superficial hyperplastic PATIENT NAME: BERLIN SAHA PATHOLOGY DATE OF : 86 REPORT #: [id number] PHYSICIAN: [facility] PCP: MEENA QUINTANA MD REPORT IS CONFIDENTIAL AND NOT TO BE RELEASED WITHOUT AUTHORIZATION [facility] [address] [place], [place] [address] Signed change G. Descending colon, polypectomy: - Tubular adenoma. - Negative for high grade dysplasia or malignancy. H. Rectum, polypectomy: - Hyperplastic polyp. I. Rectum, biopsies: - Prominent intramucosal lymphoid aggregate and mild reactive change. - Negative for acute proctitis, dysplasia or malignancy. DWS:clv MICROSCOPIC EXAMINATION: Histologic sections of all submitted blocks are examined by light microscopy. These findings, together with the gross examination, support the pathologic diagnosis. GROSS DESCRIPTION: A. The specimen, labeled and designated "Saha, cecum polyp," is received in formalin and consists of two medrano soft tissue fragments, ranging from 0.2 to 0.4 cm. Entirely submitted in (A1). B. The specimen, labeled and designated "Saha, cecum polyp," is received in formalin and consists of three medrano soft tissue fragments, ranging from 0.1-0.2 cm. Entirely submitted in (B1). C. The specimen, labeled and designated "Saha, descending colon polyp," is received in formalin and consists of four medrano soft tissue fragments, ranging from 0.1-0.2 cm. Entirely submitted in (C1). D. The specimen, labeled and designated "Saha, descending colon polyp," is received in formalin and consists of two medrano soft tissue fragments, ranging from 0.1 cm. Entirely submitted in (D1). E. The specimen, labeled and designated "Saha, descending colon polyp," is received in formalin and consists of one medrano soft tissue fragment, 0.2 cm. Entirely submitted in (E1). F. The specimen, labeled and designated "Saha, sigmoid colon polyp," is received in formalin and consists of one medrano soft tissue fragment, 0.1 cm. Entirely submitted in (F1). G. The specimen, labeled and designated "Marquise, descending colon polyp," is received in formalin and consists of one medrano soft tissue fragment, 0.9 cm. Resection margin is inked and specimen is sectioned. Entire specimen is submitted in (G1). H. The specimen, labeled and designated "Marquise, rectum polyp," is received in formalin and consists of three medrano soft tissue fragments, ranging from PATIENT NAME: BERLIN SAHA PATHOLOGY DATE OF : [birth year] REPORT #: [id number] PHYSICIAN: CARLTON HUYNH PCP: MEENA QUINTANA MD REPORT IS CONFIDENTIAL AND NOT TO BE RELEASED WITHOUT AUTHORIZATION [facility] [address] [place], [place] [address] Signed 0.1-0.2 cm. Entirely submitted in (H1). I. The specimen, labeled and designated "Marquise, rectum biopsy," is received in formalin and consists of one medrano soft tissue fragment, 0.2 cm. Entirely submitted in (I1). JS (under the direct supervision of a pathologist) The Gross Description was prepared using a voice recognition system. The report was reviewed for accuracy; however, sound-alike word errors, addition and/or deletions may occur. If there is any question about this report, please contact Client Services. PERFORMING LABORATORY: Technical component was performed by [employer], [address] [place] [id number] (CLIA# [id number]). Professional interpretation was performed by [facility], [address] [place] [id number] (CLIA#: [id number]). Diagnostician: Sammy Lema MD Pathologist Electronically Signed 03/16/2025 Copies: ~ PATIENT NAME: BERLIN SAHA PATHOLOGY DATE OF : [birth year] REPORT #: [id number] PHYSICIAN: [facility] [employer] [facility] PATHOLOGY PCP: MEENA QUINTANA MD REPORT IS CONFIDENTIAL AND NOT TO BE RELEASED WITHOUT AUTHORIZATION
== END 2025-03-14 09:14 | disposition home or self-care (01) ==
LOC: OPS 05:50 → DS 05:50 → OPS 07:30
PROVIDERS: ATTEND Surgery
PROC: 0DBN8ZZ Excision of Sigmoid Colon, Via Natural or Artificial Opening Endoscopic (ICD-10-PCS; 2025-03-14)
PROC: 0DBP8ZZ Excision of Rectum, Via Natural or Artificial Opening Endoscopic (ICD-10-PCS; 2025-03-14)
PROC: 0DBH8ZZ Excision of Cecum, Via Natural or Artificial Opening Endoscopic (ICD-10-PCS; 2025-03-14)
PROC: 0DBK8ZZ Excision of Ascending Colon, Via Natural or Artificial Opening Endoscopic (ICD-10-PCS; principal; 2025-03-14 07:30)
DX: Z12.11 Encounter for screening for malignant neoplasm of colon (principal); D12.0 Benign neoplasm of cecum; D12.4 Benign neoplasm of descending colon; K63.5 Polyp of colon; K62.1 Rectal polyp; E04.1 Nontoxic single thyroid nodule; Z86.0100 Personal history of colon polyps, unspecified; E66.01 Morbid (severe) obesity due to excess calories; Z68.42 Body mass index [BMI] 45.0-49.9, adult; Z79.899 Other long term (current) drug therapy; Z91.09 Other allergy status, other than to drugs and biological substances; Z90.49 Acquired absence of other specified parts of digestive tract
CPT/HCPCS: 00811; 93005; 93010; J2003; J2704; J7121

== ENCOUNTER 2025-03-25 09:25 | Day surgery (SDC) | payer OTHER ==
[2025-03-25] VITALS (10 sets, daily range): BP systolic 122–146; BP diastolic 75–98
[~2025-03-25] VITALS: Ht 188 cm; Wt 185.0 kg
[~2025-03-25 09:25] MED LIST changes: +CEFAZOLIN SODIUM 3 GM in SODIUM CHLORIDE 0.9% 100 ML IV SCH; +IBLOOD GLUCOSE TEST STRIP 1 EA TEST VI PRN; +LIDOCAINE HCL 1% 5 ML SDV INJ ONE
[2025-03-25] MEDS ORDERED: LIDOCAINE HCL 1% 30 ML SDV ONE (10:12)
[2025-03-25] MEDS ORDERED: DEXAMETHASONE SOD PHOS 4 MG/ML VIAL ONE (10:12)
[2025-03-25] MEDS ORDERED: KETOROLAC TROMETHAMINE 30 MG/ML VIAL ONE (10:12)
[2025-03-25] MEDS ORDERED: LIDOCAINE HCL 2% 5 ML SDV ONE (10:12)
[2025-03-25] MEDS ORDERED: ROCURONIUM BROMIDE 50 MG/5 ML SYR ONE ×2 (10:12→12:17)
[2025-03-25] MEDS ORDERED: SUGAMMADEX SODIUM 200 MG/2 ML ML ONE (10:12)
[2025-03-25] MEDS ORDERED: fentaNYL citrate 100 MCG/2 ML VIAL ONE ×2 (10:13→12:13)
[2025-03-25] MEDS ORDERED: MIDAZOLAM HCL 2 MG/2 ML VIAL ONE (10:13)
[2025-03-25] MEDS ORDERED: ACETAMINOPHEN 1,000 MG/100 ML VIAL ONE (10:13)
[2025-03-25] MEDS ORDERED: KETAMINE in NS 50 MG/5 ML SYR ONE (11:18)
[2025-03-25] MEDS ORDERED: LACTATED RINGER'S 1,000 ML IV ONE (12:35)
--- NOTE | 2025-03-25 13:38 | NUR ---
03/25/25 1338 Sheets,Brooke 1331 PT ARRIVED TO PACU ON 6L VIA MASK, HOB INCREASED. RESP EVEN AND UNLABORED WITH ORAL AIRWAY IN PLACE.
[2025-03-25] MEDS ORDERED: HYDROmorphone HCL 1 MG/ML SYR IV PRN (13:45)
[2025-03-25] MEDS ORDERED: NALOXONE HCL 0.4 MG SYR IV PRN (13:45)
[2025-03-25] MEDS ORDERED: fentaNYL citrate 50 MCG/ML SDV IV PRN (13:45)
[2025-03-25] MEDS ORDERED: MIDAZOLAM HCL 2 MG/2 ML VIAL IV PRN (13:45)
[2025-03-25] MEDS ORDERED: IBLOOD GLUCOSE TEST STRIP 1 EA TEST VI PRN (13:45)
[2025-03-25] MEDS ORDERED: LACTATED RINGER'S 1,000 ML IV SCH (14:00)
[2025-03-25] MEDS ORDERED: OXYCODONE/APAP 7.5/325 TAB PO PRN (14:00)
[2025-03-25] MEDS ORDERED: clonazePAM 0.5 MG TAB PO PRN (14:00)
[2025-03-25] MEDS ORDERED: BUTALB/ACETAMINOPHEN/CAFFEINE 1 EACH CAP PO PRN (14:00)
[2025-03-25] MEDS ORDERED: ACETAMINOPHEN 500 MG TAB PO SCH (14:00)
--- NOTE | 2025-03-25 15:09 | NUR ---
Patient arrived to the medical floor from surgery. Patient awake, alert and oriented x3, no acute distress. Vital signs are stable, sp02 95% on room air. HOB elevated. patent airway noted. Surgical dressing to anterior neck noted-cdi. No notable swelling to tissue surrounding surgical site. Call light within reach.
[2025-03-25] MEDS ORDERED: ALBUTEROL SULFATE 0.083% 3 ML VIAL INH PRN (16:00)
--- NOTE | 2025-03-25 16:10 | NUR ---
PER PRIMARY RN PT IS NAUSEATED AT THIS TIME, ONLY ORDERS FOR PACU. MD CALLED, TELEPHONE ORDERS FOR INAPSINE 0.625MG Q6HRS PRN (IV), DILAUDID 4MG PO Q6HRS PRN FOR PAIN. ORDERS REPEATED BACK, INPUT. PRIMARY RN UPDATED WITH ORDERS.
--- NOTE | 2025-03-25 16:25 | NUR ---
Admin dilaudid 4mg po for reports of 8/10 incisional pain.
--- NOTE | 2025-03-25 16:47 | NUR ---
Inapsine 0.625mg iv admin at this time for reported nausea. HOB remains elevated, patient appears without distress. Family at bedside visiting. SP02 98% on room air, resp non labored.
--- NOTE | 2025-03-25 17:43 | NUR ---
Patient resting, easily wakes to verbal stimuli. Vital signs stable, sp02 98% on room air, respirations non labored. Patient reports he is comfortable at this time. Patient's mother at bedside.
--- NOTE | 2025-03-25 18:04 | NUR ---
PATIENT IS IN BED AT THIS TIME, MOTHER IS IN THE ROOM, ASSEMBLER CONVERTIBLE TOP CHARTED VITALS AND I&O'S, CALL LIGHT WITH IN REACH AND NOTHING ELSE NEEDED AT THIS TIME.
--- NOTE | 2025-03-25 19:03 | NUR ---
Patient resting, eyes closed, respirations non labored, sp02 95% on room air. Neck dressing cdi. HOB elevated, airway patent. IV fluids infusing per order. Bed alarm intact. Cont sp02 monitor intact.
--- NOTE | 2025-03-25 19:25 | NUR ---
ADMIN TWO TABS PERCOCET 7.5/325MG PO AT THIS TIME FOR REPORTS OF 7/10 SURGICAL SITE PAIN.
--- NOTE | 2025-03-25 19:49 | NUR ---
RECEIVED REPORT FROM DAYSHIFT RN. PATIENT UP TO BR. VILLALBA ABLE TO VOID. PATIENT IS BACK IN BED RESTING. PATIENT REPORTS PAIN IN HIS NECK, PRN PAIN MEDICATION GIVEN BY DAY SHIFT RN. PATIENT DENIES ANY NAUSEA. PATIENT DENIES ANY FURTHER NEEDS. CALL LIGHT IN REACH.
--- NOTE | 2025-03-25 20:36 | NUR ---
PATIENTS VITALS TAKEN AND RECORDED. INTAKE AND OUTPUT RECORDED. PATIENT RATES PAIN AT A 4/10 IN HIS NECK. ICE PACK PROVIDED. PATIENT DENIES THE NEED FOR PO PAIN MEDICATION AT THIS TIME. ASSESMENT COMPLETED. PATIENTS IV INFUSING PER ORDER. PATIENT DENIES ANY FURTHER NEEDS. CALL LIGHT IN REACH.
--- NOTE | 2025-03-25 22:37 | NUR ---
PATIENT IS RESTING IN BED WITH EYES CLSOED, CPOX READINGS ARE WNL. PATIENTS IV INFUSING PER ORDER. NAD NOTED. CALL LIGHT IN REACH.
--- NOTE | 2025-03-25 23:16 | NUR ---
PATIENT CALLED AND REPORTED 7/10 NECK PAIN AND 5/10 SORIANO, PRN PAIN MEDICATION GIVEN PER ORDER. PATIENT GIVEN PRN ANXIETY MEDICATION PER REQUEST. PATIENTS IV INFUSING PER ORDER. FRESH ICE WATER PROVIDED. PATIENT DENIES ANY NAUSEA. PATIENT DENIES ANY FURTHER NEEDS. CALL LIGHT IN REACH.
--- NOTE | 2025-03-26 00:16 | NUR ---
PATIENT IS RESTING IN BED WITH EYES CLSOED, CPOX READINGS ARE WNL. NAD NOTED. IV INFUSING PER ORDER. CALL LIGHT IN REACH.
[2025-03-26 02:13] VITALS: BP 125/84
--- NOTE | 2025-03-26 02:14 | NUR ---
PATIENTS VITALS TAKEN AND RECORDED. PATIENT DENIES ANY PAIN OR NAUSEA. PATIENT DENIES ANY FURTHER NEEDS. CALL LIGHT IN REACH.
--- NOTE | 2025-03-26 04:11 | NUR ---
PATIENT IS RESTING IN BED WITH EYES CLOSED, CPOX READINGS ARE WNL. NAD NOTED. CALL LIGHT IN REACH. IV INFUSING PER ORDER.
[2025-03-26 05:49] VITALS: BP 128/78
[2025-03-26 05:53] VITALS: BP 128/78
--- NOTE | 2025-03-26 06:06 | NUR ---
PATIENTS VITALS TAKEN AND RECORDED. URINAL EMPTIED. INTAKE AND OUTPUT RECORDED. PATIENT DENIES ANY SOB. PATIENT RATES PAIN AT A 9/10 IN HIS NECK, PRN PAIN MEDICATION GIVEN PER ORDER. PATIENT DENIES ANY NAUSEA. PATIENT PROVIDED FRESH ICE WATER. PATIENTS IV INFUSING PER ORDER. PATIENT DENIES ANY FURTHER NEEDS. CALL LIGHT IN REACH.
--- NOTE | 2025-03-26 07:20 | NUR ---
Patient awake, alert and oriented x3, no acute distress. Patient reports he slept well last night. Neck dressing has small amount of serosang drainage. Patient denies shortness of breath, ariway patent, sp02 96% on room air. Patient denies needs at this time, call light within reach.
--- NOTE | 2025-03-26 07:53 | NUR ---
Admin dilaudid 4mg po for reports of 7/10 incisional pain.
[2025-03-26 10:36] VITALS: BP 144/80
--- NOTE | 2025-03-26 10:38 | NUR ---
PT HAD VISITORS WITH HIS DOG IN THE ROOM. GOT PT FRESH ICE PACK AND PT WANTS ME TO REPORT MORE PAIN TO RN - DONE. CALL LIGHT WITHIN REACH. PT REPORTED NEEDING NOTHING MORE AT THIS TIME.
--- NOTE | 2025-03-26 12:22 | NUR ---
MED REC COMPLETE
[2025-03-26] MEDS ORDERED: OXYCODON-ACETA1 EAC2 PO (12:38)
[2025-03-26] MEDS ORDERED: ACETAMINOPHEN500 MG PO (12:38)
[2025-03-26 13:49] VITALS: BP 147/99
--- NOTE | 2025-03-27 13:51 | OR ---
[facility] [address] [place], [place] [address] Signed DATE OF OPERATION: 03/25/2025 SURGEON: Ihsan Conner MD PREOPERATIVE DIAGNOSES: 1. Morbid obesity. 2. 5.2 cm right cystic solid thyroid mass (symptomatic) episodic air hunger. POSTOPERATIVE DIAGNOSES: 1. Morbid obesity. 2. 5.2 cm right cystic solid thyroid mass (symptomatic) episodic air hunger. PROCEDURE: Right total thyroid lobectomy with isthmusectomy. ANESTHESIA: General endotracheal; Chani Arellano CRNA. INDICATION: This 34-year-old morbidly obese white man is a patient Dr. Meena Pires. He is noted to have bulky thyroid disease quite evident even on inspection. The palpable mass is noted in the right neck. Ultrasound performed on November 20, 2024 showed abnormalities of both the right and left lobes. On the right side, a 5.2 cm mass in the midportion correlated with the palpable abnormality considered TI-RADS category 2. Second mass was only 1 cm and considered TI-RADS 3. On the left was 1.1 cm TI-RADS 2 nodule and the isthmus was considered normal. He underwent ultrasound, fine-needle aspiration biopsy by the radiologist on January 10, 2025 (Dr. Diego), which showed cystic nodule with cytologic exam considered nondiagnostic. The patient has been markedly anxious regarding the nodule, mostly concerned about cancer. He has no specific family history of thyroid cancer, but several family members have had thyroidectomy for benign disease. He recently underwent colonoscopy by me, was found to have multiple polyps as he has had in the past. Today, he is here to undergo right thyroid lobectomy with isthmusectomy for symptomatic right thyroid mass 5.2 cm in size. The patient and his mother understand the risk of operation including, but not limited to bleeding, infection, recurrent or external laryngeal nerve injury, cosmetic deformity, and so on. Understanding this, he wished to proceed. FINDINGS: The bulky mass took up essentially all of the thyroid on the right side. The isthmus was normal. The mass itself was spongy and large. It was excised completely. The Electronically Signed By: IHSAN CONNER MD 03/27/25 1351 PATIENT NAME: BERLIN SAHA OPERATIVE REPORT DATE OF : [birth year] REPORT #: [id number] PHYSICIAN: IHSAN CONNER MD PCP: MEENA PIRES MD REPORT IS CONFIDENTIAL AND NOT TO BE RELEASED WITHOUT AUTHORIZATION [facility] [address] [place] [id number] Signed superior-inferior parathyroid glands were identified. The recurrent laryngeal nerve was not visualized, but dissection was in an extracapsular technique of Sudeep, and thus the typical site for recurrent laryngeal nerve was not encountered. He tolerated procedure well. Blood loss was less than 20 mL. DESCRIPTION OF PROCEDURE: The patient was brought to the operating room, given a general endotracheal anesthetic. A shoulder roll was placed and mild extension of the neck undertaken. A niko lounge position was maintained. The neck was prepared with a chlorhexidine based solution. Preoperative antibiotic Ancef had been given. Sequential compression device stockings were applied. After sterile preparation, palpation of the neck revealed the bulky right thyroid nodule. He had only one natural skin crease, which was utilized and it was a bit cephalad more than usual, but was optimal for long-term cosmesis. Dissection was carried through the dermis with sharp dissection using a 15 blade, and subcutaneous tissue and platysmal layer divided with electrocautery. Superior and inferior flaps were developed in avascular plane. Gelpi retractors were placed. The sternohyoid muscle was freed from the overlying thyroid revealing the underlying sternothyroid muscle, which too was freed with sharp dissection away from the underlying bulky right thyroid lobe. Thyroid lobe had a loose areolar tissue surrounding the edges and this was sharply dissected free. Meticulous care was taken to maintain hemostasis. Small venous channels were secured with 0 silk ties and divided. The thyroid was rolled toward the midline. Dominant dissection initially was in the lower pole allowing for ligation of thyroid vessels close to the capsule of the thyroid itself. The superior pole was a bit more bulky and required extra time, but individual ligation of superior thyroid veins and arteries was undertaken with ligation with 4-0 silk. The thyroid to be rolled progressively toward the midline. The posterior elements were identified and using the extracapsular technique of Sudeep, they were allowed to remain within the neck itself. Small clips were applied as necessary in the upper, lower and middle portions some of which were used as security after ligation with 4-0 silk ties. Ultimately, the ligament of Baker was identified. This was transected sharply and ultimately with electrocautery rotating the isthmus towards midline. Sequential application of hemostats to the isthmus in relation to the left thyroid lobe was undertaken. The parenchyma was then secured with 4-0 silk suture. Irrigation was undertaken in the peritracheal space. Photographs were taken as well. The superior and inferior parathyroid glands were identified as normal. The recurrent laryngeal nerve was not specifically dissected free and was out of the field of dissection thanks to the technique of an extracapsular resection. A drain was deemed advisable. However, Roby hemostatic agent was liberally supplied to the depths of the wound. The midline fascia was reapproximated with interrupted 2-0 Vicryl as was the platysmal Electronically Signed By: IHSAN CONNER MD 03/27/25 0424 PATIENT NAME: BERLIN SAHA OPERATIVE REPORT DATE OF : [birth year] REPORT #: [id number] PHYSICIAN: IHSAN CONNER MD PCP: MEENA PIRES MD REPORT IS CONFIDENTIAL AND NOT TO BE RELEASED WITHOUT AUTHORIZATION [facility] [address] [place], [place] [address] Signed layer. The skin was closed with a running subcuticular 3-0 Vicryl. Steri-Strips were applied as was an Acticoat dressing. He was ultimately extubated and transferred to the recovery room in good condition having suffered no complication. Sponge, needle, and instrument counts reported as correct x3. MD MORELIA Spann/MODL /[id number] cc: Meena Pires MD Copies: MEENA PIRES MD ~ Electronically Signed By: IHSAN CONNER MD 03/27/25 1351 PATIENT NAME: BERLIN SAHA OPERATIVE REPORT DATE OF : [birth year] REPORT #: [id number] PHYSICIAN: IHSAN CONNER MD PCP: MEENA PIRES MD REPORT IS CONFIDENTIAL AND NOT TO BE RELEASED WITHOUT AUTHORIZATION
--- NOTE | 2025-03-29 17:18 | PATH ---
[facility] [address] [place], [place] [address] Signed SPECIMEN(S): A RIGHT THYROID LOBE AND ISTHMUS SPECIMEN SOURCE: A. RIGHT THYROID LOBE AND ISTHMUS CLINICAL HISTORY: Right thyroid nodule. Mixed solid to cystic on US findings. Clinical/imaging suspicion for malignancy: Intermediate nodule size equals 5.2 cm FINAL PATHOLOGIC DIAGNOSIS: Right thyroid lobe and isthmus: - Benign follicular adenoma. - Benign hyperplastic thyroid nodules. COMMENT: As part of [employer]' Quality Improvement Program, this case was reviewed by another member of our pathology staff. JVR:lewis MICROSCOPIC EXAMINATION: Histologic sections of all submitted blocks are examined by light microscopy. These findings, together with the gross examination, support the pathologic diagnosis. GROSS DESCRIPTION: The specimen, labeled and designated "Harris Saha., right thyroid lobe and isthmus per requisition," is received in formalin and consists of a 53 g partial thyroidectomy specimen with a 6.6 x 3.9 x 3.6 cm right lobe and a 2.2 x 1.4 x 1.2 cm isthmus. The capsule is intact and subsequently inked black while the isthmus is inked yellow. Sectioning reveals a 4.2 x 3.6 x 2.9 cm medrano soft totally encapsulated solid cystic nodule (primarily cystic) in the mid to inferior pole. The nodule is confined to the thyroid does not grossly invade the resection margin which is greater than 1 cm away. Abutting the nodule in the superior mid pole is a 1.1 x 1 x 0.8 cm medrano homogenous soft unencapsulated solid nodule which is also confined to the thyroid and does not grossly invade the resection margin. Greater than 3 cm away from the second nodule and 1.2 cm away from the first nodule is a 0.8 x 0.8 x 0.7 cm medrano homogenous firm unencapsulated solid nodule in the isthmus abutting the margin. The nodule PATIENT NAME: BERLIN SAHA PATHOLOGY DATE OF : 86 REPORT #: [id number] PHYSICIAN: CALRTON HUYNH PCP: MEENA QUINTANA MD REPORT IS CONFIDENTIAL AND NOT TO BE RELEASED WITHOUT AUTHORIZATION [facility] [address] [place], [place] [address] Signed appears confined to the thyroid. There are no additional nodules identified. The background parenchyma is medrano-red and homogenous. No lymph nodes or parathyroid glands are identified. [employer] sections are submitted as follows: Cassette Summary: (A1) isthmus margin, shaved with third nodule (A2) nodule 1 to nodule 2 (A3-A13) nodule 1, capsule, entirely submitted (A14) uninvolved parenchyma, superior pole AA (under the direct supervision of a pathologist) The Gross Description was prepared using a voice recognition system. The report was reviewed for accuracy; however, sound-alike word errors, addition and/or deletions may occur. If there is any question about this report, please contact Client Services. PERFORMING LABORATORY: Technical component was performed by [employer], [address] [place] [id number] (CLIA# [id number]). Professional interpretation was performed by [facility], [address] [place] [id number] (CLIA#: [id number]). Diagnostician: Matthew Tesfaye MD Pathologist Electronically Signed 03/29/2025 Copies: ~ PATIENT NAME: BERLIN SAHA PATHOLOGY DATE OF : 86 REPORT #: [id number] PHYSICIAN: CARLTON HUYNH PCP: MEENA QUINTANA MD REPORT IS CONFIDENTIAL AND NOT TO BE RELEASED WITHOUT AUTHORIZATION
== END 2025-03-26 13:51 | disposition home or self-care (01) ==
LOC: DS 09:25 → MS 14:41 → DS 03-26 13:51
PROVIDERS: ATTEND Surgery
PROC: 0GTJ0ZZ Resection of Thyroid Gland Isthmus, Open Approach (ICD-10-PCS; 2025-03-25)
PROC: 0GTH0ZZ Resection of Right Thyroid Gland Lobe, Open Approach (ICD-10-PCS; principal; 2025-03-25 11:30)
DX: D34 Benign neoplasm of thyroid gland (principal); E04.1 Nontoxic single thyroid nodule; M42.00 Juvenile osteochondrosis of spine, site unspecified; G47.33 Obstructive sleep apnea (adult) (pediatric); F32.A Depression, unspecified; F11.20 Opioid dependence, uncomplicated; F90.9 Attention-deficit hyperactivity disorder, unspecified type; E66.01 Morbid (severe) obesity due to excess calories; Z68.42 Body mass index [BMI] 45.0-49.9, adult; Z79.899 Other long term (current) drug therapy; Z98.1 Arthrodesis status; Z86.0100 Personal history of colon polyps, unspecified; Z91.048 Other nonmedicinal substance allergy status; Z90.49 Acquired absence of other specified parts of digestive tract
CPT/HCPCS: 00320; 94762; A9270; J0131; J0688; J1100; J1171; J1790; J1885; J2003; J2250; J2405; J2704; J3010; J3490; J7121